=== PATIENT | female | born 1985 | race Caucasian/White ===

== ENCOUNTER 2017-05-19 05:43 | Day surgery (SDC) | payer BC, OTHER ==
[~2017-05-19] VITALS: Ht 170.2 cm; Wt 67.1 kg
[~2017-05-19 05:43] MED LIST: ALBUTEROL0.09 MG/A1 IH; BUDESONIDE1 POW; PREVACID30 MG PO; PROAIR HFA0.09 MG/AC IH; PROVENTIL0.09 MG/A1 IH; RT ALBUTER2.5 MG/0.5 IH; SINGULAIR; SINGULAIR 110 MG/TAB PO; SPRINTEC 35 MCG1 TAB PO
[2017-05-19] MEDS ORDERED: [UNRECOGNIZED DRUG - OTHER] TOP (06:19)
[2017-05-19] MEDS ORDERED: CUTIVATE TOP (06:19)
[2017-05-19 06:20] VITALS: BP 97/58; PULSE 78; TEMP 97.3
[2017-05-19 06:39] VITALS: BP 97/58; PULSE 78; TEMP 97.3
[2017-05-19 08:30] VITALS: BP 100/48; PULSE 94; TEMP 97.2
[2017-05-19 08:45] VITALS: BP 105/62; PULSE 59
[2017-05-19 09:00] VITALS: BP 106/59; PULSE 59
[2017-05-19 09:15] VITALS: BP 105/64; PULSE 55
== END 2017-05-19 10:05 | disposition home or self-care (01) ==
LOC: SDCO 05:43
DX: M20.11 Hallux valgus (acquired), right foot (principal); M21.611 Bunion of right foot; J45.909 Unspecified asthma, uncomplicated; K21.9 Gastro-esophageal reflux disease without esophagitis; Z83.3 Family history of diabetes mellitus; Z80.42 Family history of malignant neoplasm of prostate; Z83.49 Family history of other endocrine, nutritional and metabolic diseases
CPT/HCPCS: C1713; J0690; J1100; J2250; J2405; J2704; J3010; J7120

== ENCOUNTER 2017-12-09 18:12 | Emergency (ER) | payer BC, OTHER ==
[~2017-12-09] VITALS: Ht 170.2 cm; Wt 68.2 kg
[~2017-12-09 18:12] MED LIST changes: +CUTIVATE TOP; +[UNRECOGNIZED DRUG - OTHER] TOP
[2017-12-09 18:18] VITALS: BP 96/72; TEMP 98.3
[2017-12-09 19:44] VITALS: PULSE 87
== END 2017-12-09 19:45 | disposition home or self-care (01) ==
LOC: COL.ER 18:12
DX: Z20.3 Contact with and (suspected) exposure to rabies (principal); J45.909 Unspecified asthma, uncomplicated; Z88.5 Allergy status to narcotic agent; Z79.52 Long term (current) use of systemic steroids

== ENCOUNTER 2017-12-12 17:30 | Outpatient (RCR) | payer BC, OTHER ==
[2017-12-23 18:54] VITALS: BP 108/61; PULSE 72; TEMP 98.1
[2018-03-03] MEDS ORDERED: ZOFRAN 4MG T4 MG/TAB PO (16:18)
[2018-03-03] MEDS ORDERED: PERCOCET 325 MG1 TA2 PO (16:18)
== END 2018-03-12 | disposition home or self-care (01) ==
LOC: COL.ER
DX: Z23 Encounter for immunization (principal); Z88.5 Allergy status to narcotic agent

== ENCOUNTER 2018-03-03 13:29 | Emergency (ER) | payer BC, OTHER ==
[~2018-03-03] VITALS: Ht 172.7 cm; Wt 65.9 kg
[2018-03-03 13:32] VITALS: TEMP 98
[2018-03-03 14:35] LABS: COLLECTION METHOD CLEAN CATCH
[2018-03-03 14:43] LABS: MUCOUS Present /lpf; PH 5 (5-8); SQUAMOUS EPITHELIAL 0-2 /hpf; URINE APPEARANCE Clear; URINE BACTERIA Rare /hpf; URINE BILIRUBIN Negative (NEGATIVE); URINE BLOOD 3+ (NEGATIVE); URINE COLOR Yellow; URINE GLUCOSE Negative (NEGATIVE); URINE KETONE Negative (NEGATIVE); URINE LEUKOCYTE ESTERASE Negative (NEGATIVE); URINE NITRATE Negative (NEGATIVE); URINE PROTEIN(semi-quant) 2+ (NEGATIVE); URINE RBC >50 /hpf; URINE UROBILINOGEN Negative (NEGATIVE)
[2018-03-03 14:49] LABS: BASO % 0.6 % (0.0-2.0); EOS # 0.1 (0.0-0.7); EOS % 0.7 % (0-4.0); GRAN # 4.4 (1.4-6.5); GRAN % 63.2 % (42.2-75.2); HEMATOCRIT 39.4 % (37.0-47.0); HEMOGLOBIN 13.3 g/dl (12.5-16.0); MEAN CELL VOLUME 85 fl (80.0-100.0); MEAN CORPUSCULAR HEMOGLOBIN 29 pg (27.0-31.0); MEAN CORPUSCULAR HGB CONC 34 g/dl (33.0-37.0); MEAN PLATELET VOLUME 11.6 fl (7.4-10.4); MONO # 0.5 (0.1-0.6); MONO % 6.4 % (1.7-9.3); PLATELET COUNT 203 K/mm3 (130-400); RED BLOOD COUNT 4.63 M/mm3 (4.10-5.30); REDCELL DISTRIBUTION WIDTH-CV 12.1 % (11.5-14.5)
[2018-03-03 14:58] LABS: ALBUMIN 4.2 gm/dL (3.5-5.0); BILIRUBIN,TOTAL 0.6 mg/dL (0.0-1.0); C-REACTIVE PROTEIN 0.6 mg/dL (0.0-0.9); CALCIUM 9.4 mg/dL (8.4-10.2); CREATININE, serum 0.89 mg/dL (0.52-1.25); POTASSIUM 3.7 mmol/L (3.4-5.0); TOTAL PROTEIN 7.2 gm/dL (6.4-8.2)
[2018-03-03] MEDS ORDERED: ZOFRAN 4MG T4 MG/TAB PO (16:18)
[2018-03-03] MEDS ORDERED: PERCOCET 325 MG1 TA2 PO (16:18)
[2018-03-03 16:49] VITALS: BP 10/65; PULSE 68
== END 2018-03-03 16:49 | disposition home or self-care (01) ==
LOC: COL.ER 13:29
PROVIDERS: Physician Assistant
DX: N83.202 Unspecified ovarian cyst, left side (principal); R31.9 Hematuria, unspecified; J45.909 Unspecified asthma, uncomplicated; K51.90 Ulcerative colitis, unspecified, without complications; Z88.5 Allergy status to narcotic agent; Z90.49 Acquired absence of other specified parts of digestive tract; Z87.42 Personal history of other diseases of the female genital tract
CPT/HCPCS: J2270; J2405; J7030; Q9967

== ENCOUNTER 2018-10-30 15:13 | Emergency (ER) | payer BC, OTHER ==
[~2018-10-30] VITALS: Ht 172.7 cm; Wt 68.2 kg
[~2018-10-30 15:13] MED LIST changes: +PERCOCET 325 MG1 TA2 PO; +ZOFRAN 4MG T4 MG/TAB PO
[2018-10-30 15:26] VITALS: TEMP 99.2
[2018-10-30] MEDS ORDERED: ZOLOFT 100MG100 MG PO (15:41)
[2018-10-30] MEDS ORDERED: TYLENOL 325MG325 MG PO (15:42)
[2018-10-30] MEDS ORDERED: EXCEDRIN1 TAB PO (15:42)
[2018-10-30] MEDS ORDERED: CEPHALEXIN250 M1 PO (15:43)
[2018-10-30 16:36] LABS: BASO % 0.7 % (0.0-2.0); EOS # 0.2 (0.0-0.7); EOS % 2.6 % (0-4.0); GRAN # 3.1 (1.4-6.5); GRAN % 52.5 % (42.2-75.2); HEMATOCRIT 42.1 % (37.0-47.0); HEMOGLOBIN 13.6 g/dl (12.5-16.0); LYMPH # 2.2 (1.2-3.4); LYMPH % 37.1 % (20.0-51.0); MEAN CELL VOLUME 90 fl (80.0-100.0); MEAN CORPUSCULAR HEMOGLOBIN 29 pg (27.0-31.0); MEAN CORPUSCULAR HGB CONC 32 g/dl (33.0-37.0); MEAN PLATELET VOLUME 11.5 fl (7.4-10.4); MONO # 0.4 (0.1-0.6); MONO % 6.6 % (1.7-9.3); PLATELET COUNT 207 K/mm3 (130-400); RED BLOOD COUNT 4.69 M/mm3 (4.10-5.30); REDCELL DISTRIBUTION WIDTH-CV 12.4 % (11.5-14.5)
[2018-10-30 16:40] LABS: ALANINE AMINOTRANSFERASE 18 U/L (9-52); ALBUMIN 4.3 gm/dL (3.5-5.0); ALKALINE PHOSPHATASE 71 U/L (50-136); ANION GAP 9 mmol/L (7-16); AST,SGOT 23 U/L (15-37); BILIRUBIN,TOTAL 0.4 mg/dL (0.0-1.0); BLOOD UREA NITROGEN 12 mg/dL (7-17); C-REACTIVE PROTEIN < 0.5 mg/dL (0.0-0.9); CALCIUM 9.3 mg/dL (8.4-10.2); CARBON DIOXIDE 25 mmol/L (22-30); CHLORIDE 107 mmol/L (98-107); CREATININE, serum 0.83 mg/dL (0.52-1.25); GLUCOSE 65 mg/dL (74-106); POTASSIUM 3.8 mmol/L (3.4-5.0); SODIUM 141 mmol/L (137-145); TOTAL PROTEIN 7.4 gm/dL (6.4-8.2)
[2018-10-30 16:59] LABS: MONOSCREEN NEGATIVE
[2018-10-30 17:40] VITALS: BP 107/71; PULSE 90
== END 2018-10-30 17:40 | disposition home or self-care (01) ==
LOC: COL.ER 15:13
PROVIDERS: Physician Assistant
DX: R59.1 Generalized enlarged lymph nodes (principal); Z88.5 Allergy status to narcotic agent; Z90.89 Acquired absence of other organs
CPT/HCPCS: J1885; J2405; J7030

== ENCOUNTER → 2018-10-31 | Outpatient (CLI) | payer BC, OTHER ==
[~2018-10-31] MED LIST changes: +CEPHALEXIN250 M1 PO; +EXCEDRIN1 TAB PO; +TYLENOL 325MG325 MG PO; +ZOLOFT 100MG100 MG PO
== END ==
LOC: COL.RAD 10:43
DX: J98.4 Other disorders of lung (principal); R59.0 Localized enlarged lymph nodes
CPT/HCPCS: Q9967

== ENCOUNTER → 2019-09-30 | Outpatient (CLI) | payer OTHER ==
[2019-09-30 17:14] LABS: BASO % 0.3 % (0.0-2.0); EOS # 0.2 (0.0-0.7); EOS % 6.2 % (0-4.0); GRAN # 2.3 (1.4-6.5); GRAN % 59.1 % (42.2-75.2); HEMATOCRIT 39.2 % (37.0-47.0); HEMOGLOBIN 12.6 g/dl (12.5-16.0); LYMPH # 0.9 (1.2-3.4); LYMPH % 23.1 % (20.0-51.0); MEAN CELL VOLUME 88 fl (80.0-100.0); MEAN CORPUSCULAR HEMOGLOBIN 28 pg (27.0-31.0); MEAN CORPUSCULAR HGB CONC 32 g/dl (33.0-37.0); MEAN PLATELET VOLUME 11.3 fl (7.4-10.4); MONO # 0.4 (0.1-0.6); MONO % 10.8 % (1.7-9.3); PLATELET COUNT 127 K/mm3 (130-400); RED BLOOD COUNT 4.44 M/mm3 (4.10-5.30)
== END ==
LOC: COL.LAB 16:39
PROVIDERS: Physician Assistant
DX: Z01.89 Encounter for other specified special examinations (principal)

== ENCOUNTER → 2020-09-10 | Outpatient (CLI) | payer OTHER | LOC: COL.RAD 12:43 | DX: G43.909 Migraine, unspecified, not intractable, without status migrainosus (principal); H53.483 Generalized contraction of visual field, bilateral | CPT/HCPCS: A9585 ==

== ENCOUNTER → 2021-05-15 | Outpatient (CLI) | payer OTHER ==
[~2021-05-15] MED LIST changes: +DICLEGIS PO; +REGLAN 10MG10 MG/TAB PO
== END ==
LOC: ZCOL.LAB 15:34
DX: E86.0 Dehydration (principal); R06.02 Shortness of breath

== ENCOUNTER 2021-05-30 19:23 | Emergency (ER) | payer OTHER ==
[~2021-05-30] VITALS: Ht 172.7 cm; Wt 81.8 kg
[~2021-05-30 19:23] MED LIST changes: -REGLAN 10MG10 MG/TAB PO
[2021-05-30 20:31] LABS: BASO % 0.3 % (0.0-2.0); EOS % 0.3 % (0-4.0); GRAN % 77.4 % (42.2-75.2); HEMATOCRIT 42.1 % (37.0-47.0); HEMOGLOBIN 13.9 g/dl (12.5-16.0); LYMPH # 1.5 (1.2-3.4); LYMPH % 16.5 % (20.0-51.0); MEAN CELL VOLUME 87 fl (80.0-100.0); MEAN CORPUSCULAR HEMOGLOBIN 29 pg (27.0-31.0); MEAN CORPUSCULAR HGB CONC 33 g/dl (33.0-37.0); MEAN PLATELET VOLUME 11.7 fl (7.4-10.4); MONO # 0.5 (0.1-0.6); MONO % 5.3 % (1.7-9.3); PLATELET COUNT 235 K/mm3 (130-400); RED BLOOD COUNT 4.85 M/mm3 (4.10-5.30); REDCELL DISTRIBUTION WIDTH-CV 11.9 % (11.5-14.5)
[2021-05-30 20:59] LABS: BILIRUBIN,TOTAL 0.4 mg/dL (0.2-1.2); CALCIUM 9.4 mg/dL (8.4-10.2); CREATININE, serum 0.77 mg/dL (0.57-1.11); POTASSIUM 4.1 mmol/L (3.5-4.5)
[2021-05-30] MEDS ORDERED: REGLAN 10MG10 MG/TAB PO (21:10)
[2021-05-30 22:00] VITALS: BP 101/64; PULSE 72; TEMP 98.6
== END 2021-05-30 22:00 | disposition home or self-care (01) ==
LOC: COL.ER 19:23
PROVIDERS: Emergency Medicine
DX: O21.9 Vomiting of pregnancy, unspecified (principal); Z3A.09 9 weeks gestation of pregnancy
CPT/HCPCS: J2765; J7120

== ENCOUNTER 2021-07-23 17:45 | Emergency (ER) | payer OTHER ==
[~2021-07-23] VITALS: Ht 172.7 cm; Wt 81.4 kg
[~2021-07-23 17:45] MED LIST changes: +REGLAN 10MG10 MG/TAB PO
[2021-07-23 17:48] VITALS: TEMP 98
[2021-07-23 18:20] LABS: BASO % 0.3 % (0.0-2.0); EOS # 0.1 K/mm3 (0.0-0.7); GRAN # 5.7 K/mm3 (1.4-6.5); GRAN % 66.3 % (42.2-75.2); HEMATOCRIT 37.9 % (37.0-47.0); HEMOGLOBIN 12.4 g/dl (12.5-16.0); LYMPH # 2.2 K/mm3 (1.2-3.4); LYMPH % 25.3 % (20.0-51.0); MEAN CELL VOLUME 87 fl (80.0-100.0); MEAN CORPUSCULAR HEMOGLOBIN 29 pg (27.0-31.0); MEAN CORPUSCULAR HGB CONC 33 g/dl (33.0-37.0); MEAN PLATELET VOLUME 11.5 fl (7.4-10.4); MONO # 0.6 K/mm3 (0.1-0.6); MONO % 6.6 % (1.7-9.3); PLATELET COUNT 228 K/mm3 (130-400); RED BLOOD COUNT 4.34 M/mm3 (4.10-5.30); REDCELL DISTRIBUTION WIDTH-CV 12.4 % (11.5-14.5)
[2021-07-23 18:42] LABS: ALBUMIN 3.7 gm/dL (3.5-5.0); BILIRUBIN,TOTAL 0.3 mg/dL (0.2-1.2); CALCIUM 9.1 mg/dL (8.4-10.2); CREATININE, serum 0.72 mg/dL (0.57-1.11); POTASSIUM 3.6 mmol/L (3.5-4.5)
[2021-07-23 22:07] LABS: COLLECTION METHOD CLEAN CATCH
[2021-07-23 22:15] LABS: MUCOUS Present (NOT PRESENT); PH 5 (5-8); SQUAMOUS EPITHELIAL 0-2 /hpf (0-10); URINE APPEARANCE Clear (CLEAR/HAZY); URINE BACTERIA None Seen (NONE SEEN); URINE BILIRUBIN Negative (NEGATIVE); URINE BLOOD Negative (NEGATIVE); URINE COLOR Yellow (YELLOW); URINE GLUCOSE Negative (NEGATIVE); URINE KETONE 2+ (NEGATIVE); URINE LEUKOCYTE ESTERASE Negative (NEGATIVE); URINE NITRATE Negative (NEGATIVE); URINE PROTEIN(semi-quant) Negative (NEGATIVE); URINE RBC None Seen /hpf (0-2); URINE UROBILINOGEN Negative (NEGATIVE)
[2021-07-23 23:11] VITALS: BP 120/61; PULSE 88
== END 2021-07-23 23:10 | disposition home or self-care (01) ==
LOC: COL.ER 17:45
PROVIDERS: Student in an Organized Health Care Education/Training Program
DX: O21.9 Vomiting of pregnancy, unspecified (principal); O99.512 Diseases of the respiratory system complicating pregnancy, second trimester; J45.909 Unspecified asthma, uncomplicated; O99.342 Other mental disorders complicating pregnancy, second trimester; F41.9 Anxiety disorder, unspecified; Z3A.17 17 weeks gestation of pregnancy; Z79.899 Other long term (current) drug therapy
CPT/HCPCS: J2405; J7030

== ENCOUNTER → 2021-07-29 | Outpatient (CLI) | payer OTHER | LOC: COL.RAD 14:15 | DX: R10.2 Pelvic and perineal pain (principal) ==

== ENCOUNTER 2021-11-18 11:53 | Outpatient (CLI) | payer OTHER ==
[~2021-11-18] VITALS: Ht 175.3 cm; Wt 87.3 kg
--- NOTE | 2021-11-18 12:00 | NUR ---
Patient ambulatory to LR3, changed into gown, FHR/TOCO monitors placed. Patient states "I tripped and fell to my knees and then down to my side, I have since been very sore and having dizziness on the right side, and feeling pressure where it feel baby's head is". Patient denies any leaking of fluid, vaginal bleeding, or decreased movement. Plan of care discussed. 1235: Dr. Pham notified, see physician notification. Patient states she is feeling stronger cramping than before. Patient updated on plan of care. Will continue to monitor. 1355: Discharge instructions discussed. Patient agrees to go home and rest and will monitor cramping/contractions. Patient verbalizes understanding. Patient off monitors. 1405: Patient ambulatory off unit.
[2021-11-18] MEDS ORDERED: PRENATAL TABLET PO (12:13)
[2021-11-18] MEDS ORDERED: AMOXICILLIN/CLA1 TA1 PO (12:13)
[2021-11-18] MEDS ORDERED: ASPIRIN 81M81 MG/TA2 PO (12:13)
[2021-11-18 12:30] VITALS: BP 117/69; PULSE 76; TEMP 98.1
[2021-11-18 13:00] VITALS: PULSE 81
[2021-11-18 13:30] VITALS: PULSE 96
[2021-11-18 13:55] VITALS: BP 101/56; PULSE 72
== END 2021-11-18 14:05 | disposition home or self-care (01) ==
LOC: LDRO 11:53 → LDR 12:30 → LDRO 14:05
DX: Z34.90 Encounter for supervision of normal pregnancy, unspecified, unspecified trimester (principal); Z3A.00 Weeks of gestation of pregnancy not specified
CPT/HCPCS: OP

== ENCOUNTER 2021-12-07 23:21 | Outpatient (CLI) | payer BC, OTHER ==
[~2021-12-07] VITALS: Ht 172.7 cm; Wt 88.2 kg
[~2021-12-07 23:21] MED LIST changes: +AMOXICILLIN/CLA1 TA1 PO; +ASPIRIN 81M81 MG/TA2 PO; +PRENATAL TABLET PO
--- NOTE | 2021-12-07 23:30 | NUR ---
G3L2 at 36 weeks and 4 days arrives to unit ambulatory with complaint of contractions every 3 minutes since 2100. Pt denies LOF or vaginal bleeding. Good movement. Pt denies headaches, blurry vision, or RUQ pain. Pt oriented to room, call light within reach, bed in low and locked position. Clean gown on. US and toco explained and applied. Admission assessment started. Vitals obtained. Plan of care reviewed. SVE /-3, vertex position, membranes palpated.
[2021-12-07 23:50] VITALS: BP 131/76; PULSE 92; TEMP 98.3
[2021-12-07] MEDS ORDERED: REGLAN 10MG10 MG/TAB PO (23:57)
[2021-12-08 00:10] VITALS: BP 114/65; PULSE 94
--- NOTE | 2021-12-08 00:10 | NUR ---
Category 1 FHR tracing obtained. Monitors off, patient to ambulate in [place].
--- NOTE | 2021-12-08 00:40 | NUR ---
SVE unchanged over [address] Cruz notified, see physician notification. 0055 - Discharge instructions reviewed with patient and spouse. Return precautions explained. Pt seen ambulating off unit with spouse.
[2021-12-08 00:45] VITALS: BP 109/61; PULSE 89
== END 2021-12-08 00:55 | disposition home or self-care (01) ==
LOC: LDRO 23:21
DX: O47.03 False labor before 37 completed weeks of gestation, third trimester (principal); Z3A.36 36 weeks gestation of pregnancy

== ENCOUNTER 2021-12-17 21:06 | Outpatient (CLI) | payer BC, OTHER ==
[~2021-12-17] VITALS: Ht 175.3 cm; Wt 87.7 kg
--- NOTE | 2021-12-17 21:10 | NUR ---
G3L2. 38-0. Pt ambulatory to LDR 6 with spouse. Clean gown on. EFM and TOCO explained and applied. Pt reports intermittent contractions but that has been going on for about 2 weeks now. Pt states why she is here is because of abdomen tenderness. Pt reports constant pain to the right side of her abdomen and states "I just do not feel right. I feel like my abdomen is detached from my body." Pt also reports waking up with a headache this morning but that has gone away. States that when her headache went away she became dizzy. Pt also reports feeling more swollen today. Plan of care explained. 2138: called and updated on pts status. See physican notification. Pt updated on new plan of care. Pt verbalized her understanding.
[2021-12-17] MEDS ORDERED: PEPCID AC20 MG PO (21:28)
[2021-12-17 21:30] VITALS: BP 121/76; PULSE 92; TEMP 98.1
[2021-12-17 21:58] LABS: BASO % 0.4 % (0.0-2.0); EOS # 0.1 K/mm3 (0.0-0.7); EOS % 1.1 % (0.0-4.0); GRAN # 6.5 K/mm3 (1.4-6.5); GRAN % 71.7 % (42.2-75.2); HEMATOCRIT 31.6 % (37.0-47.0); HEMOGLOBIN 10.6 g/dl (12.5-16.0); LYMPH % 22.1 % (20.0-51.0); MEAN CELL VOLUME 85 fl (80.0-100.0); MEAN CORPUSCULAR HEMOGLOBIN 28 pg (27-31); MEAN CORPUSCULAR HGB CONC 34 g/dl (33.0-37.0); MONO # 0.4 K/mm3 (0.1-0.6); MONO % 4.4 % (1.7-9.3); PLATELET COUNT 179 K/mm3 (130-400); RED BLOOD COUNT 3.73 M/mm3 (4.10-5.30)
[2021-12-17 22:00] VITALS: BP 107/64; PULSE 93
[2021-12-17 22:09] LABS: ALBUMIN 2.8 gm/dL (3.5-5.0); BILIRUBIN,TOTAL 0.4 mg/dL (0.2-1.2); CALCIUM 9.3 mg/dL (8.4-10.2); CREATININE, serum 0.8 mg/dL (0.57-1.11); POTASSIUM 3.2 mmol/L (3.5-4.5); TOTAL PROTEIN 5.9 gm/dL (6.2-8.1)
[2021-12-17 22:34] VITALS: BP 108/68; PULSE 77
--- NOTE | 2021-12-17 22:34 | NUR ---
CALLED AND UPDATED ON LABS AND PTS STATUS. SEE PHYSICAN NOTIFICATION. PT UPDATED ON DISCHARGE ORDERS. PT OFF MONITORS TO CHANGE. 2245: DISCHARGE INSTRUCTIONS GIVEN TO PT AND SPOUSE WHO VERBLAIZE THEIR UNDERSTANDING. PT AMBULATORY OFF UNIT AND HOME WITH SPOUSE.
[2021-12-23] MEDS ORDERED: BENADRYL25 M2 PO (10:58)
[2021-12-23] MEDS ORDERED: PROAIR HFA0.09 MG/AC IH (10:59)
[2021-12-23] MEDS ORDERED: ZOFRAN8 MG PO (10:59)
[2021-12-25] MEDS ORDERED: IBU600 MG PO (08:53)
== END 2021-12-17 22:45 | disposition home or self-care (01) ==
LOC: LDRO 21:06 → LDR 21:40 → LDRO 22:45
PROVIDERS: Obstetrics & Gynecology
DX: O92.11 Cracked nipple associated with pregnancy (principal)
CPT/HCPCS: OP

== ENCOUNTER → 2022-02-19 | Outpatient (CLI) | payer BC, OTHER ==
[~2022-02-19] MED LIST changes: +BENADRYL25 M2 PO; +IBU600 MG PO; +PEPCID AC20 MG PO; +ZOFRAN8 MG PO
== END ==
LOC: MC.RAD 09:15
DX: N63.11 Unspecified lump in the right breast, upper outer quadrant (principal)

== ENCOUNTER → 2022-04-16 | Outpatient (CLI) | payer BC | LOC: MC.RAD 09:15 | DX: N63.11 Unspecified lump in the right breast, upper outer quadrant (principal) ==

== ENCOUNTER → 2022-04-28 | Outpatient (CLI) | payer BC, OTHER | LOC: MC.RAD 09:54 | DX: N63.11 Unspecified lump in the right breast, upper outer quadrant (principal) ==

== ENCOUNTER → 2024-03-08 | Outpatient (CLI) | payer BC | LOC: COL.RAD 07:32 | DX: N20.0 Calculus of kidney (principal) ==